=== PATIENT | female | born 1995 | race Hispanic/Latino ===

== ENCOUNTER 2024-04-27 02:53 | Inpatient (IN) | payer OTHER, SELFPAY ==
--- OUTSIDE RECORDS SUMMARY | 2024-04-27 02:55 | XMS REPORT | Continuity of Care Document ---
Author Name Unknown Address [address] [facility] [address] [place], [place] [id number] [place] [address] thconnect Address [address] [facility] 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 Role MANFRED Menjivar Attending Clinician Unavailable Payers Payer Name Policy Type Policy Number Effective Date Expirati on Date Source [facility] [id number] 00:00:00 Allergies, Adverse Reactions, Alerts Allergy Name Allergy Type Status Severity Reaction(s) Onset Date Inactive Date Treating Clinician Comments Source NO KNOWN ALLERGIE S Drug Class Active [facility] Encounters Start Date/Time End Date/Time Encounter Type Admission Type Attending Clinicians Care Facility Care Department Encounter ID Source 2020-01-23 15:20:00 2020-01-23 15:20:00 Outpatient MANFRED GUNDERSON [facility] [id number] [facility]
[2024-04-27] MEDS ORDERED: ONDANSETRON 4 MG/2 ML VIAL ONE (03:35)
[2024-04-27] MEDS ORDERED: MORPHINE 4 MG/ML SYR ONE (03:36)
[2024-04-27] MEDS ORDERED: NA CHLORIDE 0.9% 1,000 ML ONE (03:36)
[2024-04-27 03:52] LABS: Absolute Basophils 0.1 K/uL (0-0.5); Absolute Lymphocytes (CBC) 2.7 K/uL (0.7-4.9); Absolute Monocytes 0.7 K/uL (0.1-1.3); Basophils % 0.4 % (0-1.3); Eosinophils % 0.2 % (0-4.4); Hematocrit 42.3 % (36.0-45.0); Hemoglobin 14.2 g/dL (12.0-15.0); Lymphocytes % 15.3 % (15.3-44.8); MCHC 33.5 g/dL (32.0-36.0); MCV 86.5 fL (80-100); MPV 8.8 fL (7.6-11.3); Monocytes % 4.3 % (3.3-12.3); Neutrophils % 79.8 % (41.7-73.7); Nucleated Red Blood Cells % 0.1 % (0-0); Platelets 380 thou/uL (152-406); RBC Red Blood Cell Count 4.89 M/uL (3.86-4.86); Red Cell Distribution Width 15.3 % (12.1-15.2)
[2024-04-27 04:06] LABS: ALT/SGPT 98 U/L (13-56); AST/SGOT 158 U/L (15-37); Albumin 3.7 g/dL (3.4-5.0); Alkaline Phosphatase 96 U/L (45-117); Anion Gap 10.5 mEq/L (5.0-15.0); BUN Blood Urea Nitrogen 7 mg/dL (7-18); Bicarbonate 27 mEq/L (21-32); Bilirubin Total 0.7 mg/dL (0.2-1.0); Globulin 3.6 g/dL (2.3-3.5); Glomerular Filtration Rate 115 ml/min (=/>90); Glucose Level 117 mg/dL (74-106); Potassium 3.5 mEq/L (3.5-5.1); Protein, Total 7.3 g/dL (6.4-8.2); Sodium Level 139 mEq/L (136-145)
[2024-04-27 04:07] LABS: Lipase > 5000 U/L (13-75)
[2024-04-27 04:55] LABS: Specific Gravity > 1.030 (1.005-1.030); Urine Bilirubin NEGATIVE (Negative); Urine Blood Negative (Negative); Urine Clarity Clear (Clear); Urine Color Light-Yellow (Yellow); Urine Glucose NEGATIVE (Negative); Urine Ketones NEGATIVE (Negative); Urine Microscopic Reflex YN NO UMIC; Urine Nitrite NEGATIVE (Negative); Urine Protein NEGATIVE (Negative); Urine Urobilinogen Normal (Normal)
[2024-04-27] MEDS ORDERED: HYDROMORPHONE HCL 1 MG/ML INJ ONE ×2 (05:09→06:10)
--- NOTE | 2024-04-27 06:01 | RAD REPORT ---
EXAM DESCRIPTION: Abdomen Pelvis W Contrast RadLex: CT ABDOMEN PELVIS WITH IV CONTRAST CLINICAL HISTORY: 29 years Female; ABD PAIN; IV ONLY Bed Name: 2 TECHNIQUE: CT of the abdomen and pelvis [with] intravenous contrast. All CT scans at this facility use dose modulation, iterative reconstruction, and/or weight based dosi ng when appropriate to reduce radiation dose to as low as reasonably achievable. COMPARISON: None. FINDINGS: Lower thorax: Lung bases are clear Abdomen: Stomach: Within normal limits Liver: No focal lesions. No intrahepatic ductal distention. Gallbladder: Distended with wall thickening. Pancreas: Mild stranding and edema surrounding the pancreas Spleen: Within normal limits Right kidney: No hydronephrosis. No focal lesion. Left kidney: No hydronephrosis. No focal lesion. Adrenal glands: Within normal limits Vascular structures: Within normal limits Nodes: No lymphadenopathy by size criteria Pelvis: Small bowel: No significant distention. Appendix: Not visualized. Colon: No distention or acute pericolonic edema. Peritoneum: No free intraperitoneal fluid or air. Bones: No acute bone findings. Bladder: Unremarkable. Reproductive organs: No acute findings. IMPRESSION: 1. Mild stranding and edema surrounding the pancreas, can be seen in setting of acute pancreatitis. Correlate with amylase/lipase levels. 2. Distended gallbladder with wall thickening, can be seen in setting of acute cholecystitis. Recom mend dedicated ultrasound for further evaluation. Electronically signed by: Diane Steve MD 04/27/2024 05:12 AM [facility] Z Due to temporary technical issues with the PACS/Second Funnel reporting system, reports are being ashlee d by the in-house radiologist without review as a courtesy to ensure prompt reporting the interpreting radiologist is fully responsible for the content of the report. Transcribed Date/Time: 04/27/2024 6:01 AM
[2024-04-27] MEDS ORDERED: PROMETHAZINE INJ 25 MG/ML AMP ONE (06:10)
[2024-04-27] MEDS ORDERED: NA CHLORIDE 0.9% 100 ML ONE (06:11)
[2024-04-27] MEDS ORDERED: PIPERACIL/TAZO 3.375 GM VIAL IV ONE (06:11)
--- NOTE | 2024-04-27 06:33 | EDPHYS ---
Physician Documentation [facility] Name: Maya Arriaza Age: 29 yrs Sex: Female : 1995 Arrival Date: 04/27/2024 Time: 02:53 Bed 2 Private MD: ED Physician Rosario Jackson HPI: 04/27 03:30 This 29 yrs old Female presents to ER via Wheelchair with complaints of sp3 Nausea/Vomiting, Back Pain, Confused, Dizziness. 03:30 29-year-old female with no past medical history, obesity now presents to the ED with sp3 chief complaint left-sided abdominal pain and emesis. She is currently on a GLP-1 but cannot remember the exact name. She denies any headache, fever, neck pain, chest pain, shortness of breath, back or flank pain, lower abdominal pain, dysuria, urinary frequency, gross visualized hematuria, COIL CUTTER symptoms, or any other signs or symptoms on ROS at this time.. 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 - Infectious Disease History:: Denies. - Social history:: Smoking status: Patient reports the use of cigarette tobacco products, denies chronic smoking, but will smoke occasionally. ROS: 03:30 Constitutional: Negative for fever, chills, and weight loss, Eyes: Negative for injury, sp3 pain, redness, and discharge, ENT: Negative for injury, pain, and discharge, Neck: Negative for injury, pain, and swelling, Cardiovascular: Negative for chest pain, palpitations, and edema, Respiratory: Negative for shortness of breath, cough, wheezing, and pleuritic chest pain, Back: Negative for injury and pain, : Negative for injury, bleeding, discharge, and swelling, MS/Extremity: Negative for injury and deformity, Skin: Negative for injury, rash, and discoloration, Neuro: Negative for headache, weakness, numbness, tingling, and seizure, Psych: Negative for depression, anxiety, suicide ideation, homicidal ideation, and hallucinations, Allergy/Immunology: Negative for hives, rash, and allergies, Endocrine: Negative for neck swelling, polydipsia, polyuria, polyphagia, and marked weight changes, Hematologic/Lymphatic: Negative for swollen nodes, abnormal bleeding, and unusual bruising, 03:30 All other systems are negative, Exam: 03:30 Constitutional: This is a well developed, well nourished patient who is awake, alert, sp3 and in no acute distress. Head/Face: Normocephalic, atraumatic. Eyes: Pupils equal round and reactive to light, extra-ocular motions intact. Lids and lashes normal. Conjunctiva and sclera are non-icteric and not injected. Cornea within normal limits. Periorbital areas with no swelling, redness, or edema. Neck: Trachea midline, no thyromegaly or masses palpated, and no cervical lymphadenopathy. Supple, full range of motion without nuchal rigidity, or vertebral point tenderness. No Meningismus. Chest/axilla: Normal chest wall appearance and motion. Nontender with no deformity. No lesions are appreciated. Cardiovascular: Regular rate and rhythm with a normal S1 and S2. No gallops, murmurs, or rubs. Normal PMI, no JVD. No pulse deficits. Respiratory: Lungs have equal breath sounds bilaterally, clear to auscultation and percussion. No rales, rhonchi or wheezes noted. No increased work of breathing, no retractions or nasal flaring. Back: No spinal tenderness. No costovertebral tenderness. Full range of motion. Skin: Warm, dry with normal turgor. Normal color with no rashes, no lesions, and no evidence of cellulitis. MS/ Extremity: Pulses equal, no cyanosis. Neurovascular intact. Full, normal range of motion. Neuro: Awake and alert, GCS 15, oriented to person, place, time, and situation. Cranial nerves II-XII grossly intact. Motor strength 5/5 in all extremities. Sensory grossly intact. Cerebellar exam normal. Normal gait. Psych: Awake, alert, with orientation to person, place and time. Behavior, mood, and affect are within normal limits. 03:30 Abdomen/GI: Pain to the left upper quadrant and epigastric area without peritoneal signs, rebound or guarding., Vital Signs: 03:12 BP 163 / 81; Pulse 70; Resp 19 S; Temp 97.6(T); Pulse Ox 100% on R/A; Weight 86.18 kg; ha1 Height 5 ft. 3 in. ; 04:00 BP 158 / 99; Pulse 76; Resp 18 S; Pulse Ox 100% on R/A; ha1 05:00 BP 120 / 102; Pulse 62; Resp 17 S; Pulse Ox 100% on R/A; ha1 06:00 BP 107 / 50; Pulse 85; Resp 17 S; Pulse Ox 99% on R/A; ha1 07:01 BP 134 / 96; Pulse 63; Resp 17; Temp 97.6; Pulse Ox 100% ; Pain 2/10; bm8 08:51 BP 117 / 85; Pulse 61; Resp 14; Pulse Ox 100% on R/A; Pain 3/10; ss 03:12 Body Mass Index 33.66 (86.18 kg, 160.02 cm) ha1 07:01 Pain Scale: Adult bm8 08:51 Pain Scale: Adult ss Dipesh Coma Score: 07:01 Eye Response: spontaneous(4). Motor Response: obeys commands(6). Verbal Response: bm8 oriented(5). Total: 15. MDM: 03:13 Medical Screening Exam initiated sp3 03:31 Data reviewed: vital signs, nurses notes, lab test result(s), radiologic studies. ED sp3 course: 29-year-old female with left upper quadrant abdominal pain on a GLP-1. Differential diagnosis includes medication side effect, gastritis, peptic ulcer disease, diverticulitis, biliary pathology, functional abdominal pain, UTI/pyelonephritis spectrum, kidney stone spectrum, among others. I am not highly suspicious of aortic pathology, COIL CUTTER pathology or any other critical process at this time including sepsis and shock will obtain general labs, UA, hCG, CT abdomen pelvis with IV contrast and treat with normal saline, morphine IV, Zofran IV. Disposition pending workup and patient course.. 06:09 ED course: Patient has acute cholecystitis as well with common bile duct 5 mm and AST sp3 ALT is slightly elevated with normal alk phos and T. bili. I spoke to Dr. Felipe regarding all of this in addition to the lipase being greater than 5000. He states he is okay keeping her here for intervention. Patient will be admitted to medicine and pain and nausea control will continue along with antibiotics. Patient is NPO.. 04/27 03:29 Order name: CBC with Diff; Complete Time: 05:01 sp3 04/27 03:29 Order name: CMP; Complete Time: 05:01 sp3 03 03:29 Order name: Lipase; Complete Time: 05:01 sp3 03/03 03:29 Order name: Urinalysis w/ reflexes; Complete Time: 05:01 sp3 04/27 03:33 Order name: Test, Serum; Complete Time: 05:01 ha1 03/03 07:23 Order name: Lipid Profile EDMS 03/03 07:23 Order name: CBC with Automated Diff EDMS 03/03 07:23 Order name: CBC with Automated Diff EDMS 03/03 07:23 Order name: CBC with Automated Diff EDMS 03/03 07:23 Order name: CBC with Automated Diff EDMS 03/03 07:23 Order name: CBC with Automated Diff EDMS 03/03 07:23 Order name: CBC with Automated Diff EDMS 03/03 07:23 Order name: CBC with Automated Diff EDMS 03/03 07:23 Order name: CBC with Automated Diff EDMS 03/03 07:23 Order name: Comprehensive Metabolic Panel EDMS 03/03 07:23 Order name: Comprehensive Metabolic Panel EDMS 03/03 07:23 Order name: Comprehensive Metabolic Panel EDMS 03/03 07:23 Order name: Comprehensive Metabolic Panel EDMS 03/03 07:23 Order name: Comprehensive Metabolic Panel EDMS 03/03 07:23 Order name: Comprehensive Metabolic Panel EDMS 03/03 07:23 Order name: Comprehensive Metabolic Panel EDMS 03/03 07:23 Order name: Comprehensive Metabolic Panel EDMS 03/03 07:23 Order name: Magnesium EDMS 03/03 07:23 Order name: Magnesium EDMS 03/03 07:23 Order name: Magnesium EDMS 03/03 07:23 Order name: Magnesium EDMS 03/03 07:23 Order name: Magnesium EDMS 03/03 07:23 Order name: Magnesium EDMS 03/03 07:23 Order name: Magnesium EDMS 03/03 07:23 Order name: Magnesium EDMS 03/03 07:23 Order name: Phosphorus EDMS 03/03 07:23 Order name: Phosphorus EDMS 03/03 07:23 Order name: Phosphorus EDMS 03/03 07:23 Order name: Phosphorus EDMS 03/03 07:23 Order name: Phosphorus EDMS 03/03 07:23 Order name: Phosphorus EDMS 03/ 07:23 Order name: Phosphorus EDMS 03/03 07:23 Order name: Phosphorus EDMS 04/27 07:32 Order name: Lipase EDMS 04/27 07:32 Order name: Lipase EDMS 04/27 07:32 Order name: Lipase EDMS 04/27 07:32 Order name: Lipase EDMS 04/27 07:32 Order name: Lipase EDMS 04/27 07:32 Order name: Lipase EDMS 04/27 07:32 Order name: Lipase EDMS 04/27 07:32 Order name: Lipase EDMS 04/27 03:29 Order name: CT Abd/Pelvis - IV Contrast Only sp3 04/27 05:47 Order name: US Abdomen Limited sp3 04/27 07:23 Order name: CONS Physician Consult EDMS 04/27 03:29 Order name: IV Saline Lock; Complete Time: 03:31 sp3 04/27 03:29 Order name: Labs collected and sent; Complete Time: 03:31 sp3 Administered Medications: 03:40 Drug: Ondansetron IVP 4 mg IVP once; over 2 minutes Route: IVP; Site: right antecubital;ha1 04:00 Follow up: Response: No adverse reaction; Marked relief of symptoms; Vomiting decreased ha1 03:40 Drug: NS 0.9% IV 1000 ml IV at 1 bolus Per protocol; to be given as a bolus over 60 ha1 minutes Route: IV; Rate: 1 bolus; Site: right antecubital; 07:04 Follow up: Response: No adverse reaction; IV Status: Completed infusion bm8 03:44 Drug: morphine IVP or IV 4 mg IVP once over 4 mins Route: IVP; Infused Over: 4 mins; ha1 Site: right antecubital; 04:00 Follow up: Response: No adverse reaction; Pain is decreased; RASS: Alert and Calm (0) ha1 05:12 Drug: HYDROmorphone IVP 1 mg IVP once Route: IVP; Site: right antecubital; ha1 05:45 Follow up: Response: No adverse reaction; Pain is unchanged, physician notified; RASS: ha1 Alert and Calm (0) 06:24 Drug: Piperacillin-Tazobactam IVPB 3.375 grams IVPB once over 60 mins; (mix in NS 100 bm8 mL) Route: IVPB; Infused Over: 60 mins; Site: right antecubital; 07:04 Follow up: Response: No adverse reaction; IV Status: Completed infusion; IV Intake: bm8 100ml 06:24 Drug: HYDROmorphone IVP 1 mg IVP once Route: IVP; Site: right antecubital; bm8 07:04 Follow up: Response: No adverse reaction bm8 06:24 Drug: Promethazine IVP 12.5 mg IVP once Route: IVP; Site: right antecubital; bm8 07:04 Follow up: Response: No adverse reaction bm8 Disposition Summary: 04/27/24 06:32 Hospitalization Ordered Notes: Hospitalization Status: Inpatient Admission sp3 Provider: Herbert Cedeno sp3 Condition: Stable sp3 Problem: an acute exacerbation sp3 Symptoms: have worsened sp3 Bed/Room Type: Standard sp3 Location: Telemetry/MedSurg (Inpatient)(04/27/24 07:09) ha1 Room Assignment: [facility](04/27/24 08:14) ja1 Diagnosis - Gallstone pancreatitis, leukocytosis, abdominal pain sp3 Forms: - Medication Reconciliation Form sp3 - SBAR form sp3 - Leadership Thank You Letter sp3 Signatures: Dispatcher [employer] EDMS Nicko Krishnan RN RN ja1 Rosario Jackson MD MD sp3 Jacki Potts RN RN vc1 Katheryn Roberts, RUBEN RN ha1 El Durán, RN RN bm8 Corrections: (The following items were deleted from the chart) 03:30 03:30 CBC+H.LAB.BRZ ordered. EDMS EDMS 03:30 03:30 COMPREHENSIVE METABOLIC PANEL+C.LAB.BRZ ordered. EDMS EDMS 03:30 03:30 LIPASE+C.LAB.BRZ ordered. EDMS EDMS 03:30 03:30 Urinalysis+U.LAB.BRZ ordered. EDMS EDMS 03:30 03:30 Abdomen Pelvis W Con+CT.RAD.BRZ ordered. EDMS EDMS 03:42 03:30 Test, Urine+UC.LAB.BRZ ordered. EDMS EDMS 06:43 06:32 Telemetry/MedSurg (Inpatient) sp3 vc1 06:43 06:32 sp3 vc1 07:09 06:43 BR ER HOLD vc1 ha1 07:09 06:43 ERHOLD- vc1 ha1 08:14 07:09 ha1 ja1
--- NOTE | 2024-04-27 06:33 | ER ---
Nurse's Notes [facility] Name: Maya Arriaza Age: 29 yrs Sex: Female : 1995 Arrival Date: 04/27/2024 Time: 02:53 Bed 2 Private MD: Diagnosis: Gallstone pancreatitis, leukocytosis, abdominal pain Presentation: 04/27 03:12 Chief complaint: Patient states: LEFT UPPER QUADRANT PAIN, RADIATES TO LEFT SHOULDER, ha1 NAUSEA, VOMITING, AND DIZZINESS WHEN VOMITING. 03:12 Coronavirus screen: Client denies travel out of the [place] in the last 14 days. Ebola ha1 Screen: No symptoms or risks identified at this time. Initial Sepsis Screen: Does the patient meet any 2 criteria? No. Patient's initial sepsis screen is negative. Does the patient have a suspected source of infection? No. Patient's initial sepsis screen is negative. Risk Assessment: Do you want to hurt yourself or someone else? Patient reports no desire to harm self or others. Onset of symptoms was April 27, 2024. 03:12 Method Of Arrival: Wheelchair ha1 03:12 Acuity: IVAN 3 ha1 Triage Assessment: 03:12 General: Appears uncomfortable, Behavior is cooperative. Pain: Complains of pain in ha1 left upper quadrant Pain currently is 9 out of 10 on a pain scale. Quality of pain is described as throbbing, Pain began 2 hours ago. Neuro: Level of Consciousness is awake, alert, obeys commands, Oriented to person, place, time, situation. Neuro: Reports dizziness. Cardiovascular: Capillary refill < 3 seconds Patient's skin is warm and dry. Respiratory: Airway is patent Respiratory effort is even, unlabored, Respiratory pattern is regular, symmetrical. GI: Abdomen is round non-distended, Bowel sounds present X 4 quads. Abd is soft and non tender X 4 quads. Reports upper abdominal pain, nausea, vomiting. : No signs and/or symptoms were reported regarding the genitourinary system. Derm: Skin is pink, warm \T\ dry. Musculoskeletal: Circulation, motion, and sensation intact. Range of motion: intact in all extremities. 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 - Infectious Disease History:: Denies. - Social history:: Smoking status: Patient reports the use of cigarette tobacco products, denies chronic smoking, but will smoke occasionally. Screenin:28 [facility] ED Fall Risk Assessment (Adult) History of falling in the last 3 months, ha1 including since admission No falls in past 3 months (0 pts) Confusion or Disorientation No (0 pts) Intoxicated or Sedated No (0 pts) Impaired Gait No (0 pts) Mobility Assist Device Used No (0 pt) Altered Elimination No (0 pt) Score/Fall Risk Level 0 - 2 = Low Risk Oriented to surroundings, Maintained a safe environment, Educated pt \T\ family on fall prevention, incl call for assistance when getting out of bed, Hourly rounding (assess needs \T\ fall precautionary measures) done. Abuse screen: Denies threats or abuse. Denies injuries from another. Nutritional screening: No deficits noted. Tuberculosis screening: No symptoms or risk factors identified. Assessment: 03:12 Reassessment: SEE TRIAGE ASSESSMENT . ha1 04:00 Reassessment: Patient and/or family updated on plan of care and expected duration. Pain ha1 level reassessed. Patient is alert, oriented x 3, equal unlabored respirations, skin warm/dry/pink. PAIN 6/10. 04:45 Reassessment: Patient and/or family updated on plan of care and expected duration. Pain ha1 level reassessed. Patient is alert, oriented x 3, equal unlabored respirations, skin warm/dry/pink. PAIN 10/10. REQUESTING PAIN MEDICATION. 07:01 Reassessment: Patient appears in no apparent distress at this time. Patient and/or bm8 family updated on plan of care and expected duration. Pain level reassessed. Patient is alert, oriented x 3, equal unlabored respirations, skin warm/dry/pink. Patient states feeling better. Patient states symptoms have improved. Neuro: No deficits noted. Level of Consciousness is awake, alert, obeys commands, Oriented to person, place, time, situation, Appropriate for age. GI: No signs and/or symptoms were reported involving the gastrointestinal system. Abdomen is flat, non-distended, Abdomen is tender to palpation in right upper quadrant and left upper quadrant Reports Pain is 2 out of 10 on a pain scale. 07:10 Reassessment: LANI Cameron at bedside assessing pt and discussing plan of care at this ha1 time. Report received from El Gomez RN. 07:45 Reassessment:. General: Appears in no apparent distress. comfortable, Behavior is calm, ss cooperative. Respiratory: Airway is patent Respiratory effort is even, unlabored, Respiratory pattern is regular, symmetrical. Derm: Skin is pink, warm \T\ dry. normal. 08:45 Reassessment: Patient appears in no apparent distress at this time. Patient and/or ss family updated on plan of care and expected duration. Pain level reassessed. Patient is alert, oriented x 3, equal unlabored respirations, skin warm/dry/pink. Pt reports pain has decreased to 3/10 Patient states feeling better. Patient states symptoms have improved. Vital Signs: 03:12 BP 163 / 81; Pulse 70; Resp 19 S; Temp 97.6(T); Pulse Ox 100% on R/A; Weight 86.18 kg; ha1 Height 5 ft. 3 in. ; 04:00 BP 158 / 99; Pulse 76; Resp 18 S; Pulse Ox 100% on R/A; ha1 05:00 BP 120 / 102; Pulse 62; Resp 17 S; Pulse Ox 100% on R/A; ha1 06:00 BP 107 / 50; Pulse 85; Resp 17 S; Pulse Ox 99% on R/A; ha1 07:01 BP 134 / 96; Pulse 63; Resp 17; Temp 97.6; Pulse Ox 100% ; Pain 2/10; bm8 08:51 BP 117 / 85; Pulse 61; Resp 14; Pulse Ox 100% on R/A; Pain 3/10; ss 03:12 Body Mass Index 33.66 (86.18 kg, 160.02 cm) ha1 07:01 Pain Scale: Adult bm8 08:51 Pain Scale: Adult ss Dipesh Coma Score: 07:01 Eye Response: spontaneous(4). Motor Response: obeys commands(6). Verbal Response: bm8 oriented(5). Total: 15. ED Course: 02:59 Patient arrived in ED. gm2 03:12 Rosario Jackson MD is Attending Physician. sp3 03:12 Patient has correct armband on for positive identification. Placed in gown. Bed in low ha1 position. Call light in reach. Side rails up X 1. Adult w/ patient. 03:20 Katheryn Roberts, RN is Primary Nurse. ha1 03:24 Triage completed. ha1 03:31 Inserted saline lock: 20 gauge in right antecubital area, using aseptic technique. af3 Blood collected. Flushed with 10 mL NS. 04:26 CT Abd/Pelvis - IV Contrast Only In Process Unspecified. EDMS 06:08 US Abdomen Limited In Process Unspecified. EDMS 06:28 Herbert Cedeno MD is Hospitalizing Provider. sp3 07:03 No provider procedures requiring assistance completed. Patient admitted, IV remains in bm8 place. 07:04 Provided Education on: NEED FOR ADMISSION. bm8 Administered Medications: 03:40 Drug: Ondansetron IVP 4 mg IVP once; over 2 minutes Route: IVP; Site: right antecubital;ha1 04:00 Follow up: Response: No adverse reaction; Marked relief of symptoms; Vomiting decreased ha1 03:40 Drug: NS 0.9% IV 1000 ml IV at 1 bolus Per protocol; to be given as a bolus over 60 ha1 minutes Route: IV; Rate: 1 bolus; Site: right antecubital; 07:04 Follow up: Response: No adverse reaction; IV Status: Completed infusion bm8 03:44 Drug: morphine IVP or IV 4 mg IVP once over 4 mins Route: IVP; Infused Over: 4 mins; ha1 Site: right antecubital; 04:00 Follow up: Response: No adverse reaction; Pain is decreased; RASS: Alert and Calm (0) ha1 05:12 Drug: HYDROmorphone IVP 1 mg IVP once Route: IVP; Site: right antecubital; ha1 05:45 Follow up: Response: No adverse reaction; Pain is unchanged, physician notified; RASS: ha1 Alert and Calm (0) 06:24 Drug: Piperacillin-Tazobactam IVPB 3.375 grams IVPB once over 60 mins; (mix in NS 100 bm8 mL) Route: IVPB; Infused Over: 60 mins; Site: right antecubital; 07:04 Follow up: Response: No adverse reaction; IV Status: Completed infusion; IV Intake: bm8 100ml 06:24 Drug: HYDROmorphone IVP 1 mg IVP once Route: IVP; Site: right antecubital; bm8 07:04 Follow up: Response: No adverse reaction bm8 06:24 Drug: Promethazine IVP 12.5 mg IVP once Route: IVP; Site: right antecubital; bm8 07:04 Follow up: Response: No adverse reaction bm8 Medication: 03:29 VIS not applicable for this client. ha1 Intake: 07:04 IV: 100ml; Total: 100ml. bm8 Outcome: 06:32 Decision to Hospitalize by Provider. sp3 07:03 Condition: stable bm8 07:03 Instructed on follow up and referral plans. the need for admit, Demonstrated understanding of follow-up care, medications, 09:22 Patient left the ED. ss Signatures: Dispatcher [employer] EDBettye Blue RN RN ss Rosario Jackson MD MD sp3 Katheryn Roberts RN RN ha1 Shawanda Elliott gm2 El Durán RN RN bm8 Heather Albarran af3 Corrections: (The following items were deleted from the chart) 08:53 07:03 Admitted to ER Hold. Please see [facility] for further documentation. bm8 ss
[2024-04-27] MEDS ORDERED: HYDRALAZINE HCL 20 MG/ML VIAL IV PRN (07:15)
[2024-04-27] MEDS ORDERED: HYDROMORPHONE HCL 1 MG/ML INJ IV PRN (07:15)
--- NOTE | 2024-04-27 07:29 | P.HP ---
Certification for Inpatient Patient admitted to: Inpatient With expected LOS: >2 Midnights Practitioner: I am a practitioner with admitting privileges, knowledge of patient current condition, hospital course, and medical plan of care. Services: Services provided to patient in accordance with Admission requirements found in Title 42 Section 412.3 of the Code of Federal Regulations Patient History Date of Service: 04/27/24 Reason for admission: Acute gallstone pancreatitis History of Present Illness: Maya Arriaza is a 29 year old female with no significant PMhx who presents to the ED with right shoulder pain, upper abdominal pain, and nause/vomiting since 10:30 PM last night. She reports she has not had anything to eat of drink since last night at 6:30 pm. She denies having these symptoms in the past. Laboratory evaluation significant for WBC 17, Lipase >5000, AST 158, ALT 98. She reports using marijuana and tobacco. CT abd/pelvis reports "1. Mild stranding and edema surrounding the pancreas, can be seen in setting of acute pancreatitis. Correlate with amylase/lipase levels. 2. Distended gallbladder with wall thickening, can be seen in setting of acute cholecystitis. Recommend dedicated ultrasound for further evaluation." Maya will be admitted to hospitalist service for further evaluation and treatment, Dr. Felipe consulted. Allergies No Known Allergies Allergy (Unverified 04/27/24 08:16) Home Medications: Phentermine HCl 1 tab PO DAILY 04/27/24 - Past Medical/Surgical History Past Medical History: Patient denies medical history Past Surgical History: Patient denies surgical history - Social History Smoking Status: Current some day smoker (tobacco and marijuana) Alcohol use: Yes CD- Drugs: Yes Review of Systems Other: Per HPI Physical Examination - Physical Exam General: Alert, In no apparent distress, Oriented x3 HEENT: Atraumatic, Normocephalic, PERRLA Neck: Supple, 2+ carotid pulse no bruit Respiratory: Clear to auscultation bilaterally, Normal air movement Cardiovascular: Normal pulses, Regular rate/rhythm, Normal S1 S2 Capillary refill: <2 Seconds Gastrointestinal: Soft and benign, Tenderness Musculoskeletal: No clubbing Integumentary: No rashes Neurological: Normal speech, Normal tone - Studies Laboratory Data (last 24 hrs) 04/27/24 04/27/24 03:33 03:33 WBC 17.50 H Hgb 14.2 Hct 42.3 Plt Count 380 Sodium 139 Potassium 3.5 BUN 7 Creatinine 0.72 Glucose 117 H Total Bilirubin 0.7 AST 158 H ALT 98 H Alkaline Phosphatase 96 Lipase > 5000 H Assessment and Plan - Plan Assessment and Plan Acute gallstone pancreatitis -Ultrasound abdomen pending -Lipase > 5000, trend daily -AST 158, ALT 98, trend daily -Pain control -Zosyn IV -N.p.o. -Dr. Felipe consulted -Aggressive IV fluids Tobacco and marijuana abuse -cessation education provided DVT ppx lovenox Full code LOS 2-3 days - Advance Directives Does patient have a Living Will: No Does patient have a Durable POA for Healthcare: No
--- NOTE | 2024-04-27 08:11 | RAD REPORT ---
PROCEDURE: US ABDOMEN LIMITED INDICATION: Abdominal pain. Concern for cholecystitis.. COMPARISON: CT abdomen and pelvis 04/27/2024 TECHNIQUE: Grayscale, color and spectral Doppler ultrasound of the gallbladder was performed. FINDINGS: Small amount of layering gallstones are seen in gallbladder. Gallbladder wall is edematous, measuring up to 4 mm in thickness. Trace pericholecystic fluid is present. Positive sonographic Hartmann's sign. The common duct measures 4.9 mm, within normal range. There is no evidence of choledocholithiasis. No ascites. IMPRESSION: Cholelithiasis with concern for acute cholecystitis. Electronically signed by: Lula Styles MD 04/27/2024 06:[address] [facility] Due to temporary technical issues with the PACS/CRAVE reporting system, reports are being ashlee d by the in-house radiologist without review as a courtesy to ensure prompt reporting the interpreting radiologist is fully responsible for the content of the report. Transcribed Date/Time: 04/27/2024 8:10 AM
[2024-04-27] MEDS: ENOXAPARIN 40 MG/0.4 ML SQ SCH (09:00)
[2024-04-27] MEDS: PROMETHAZINE INJ 25 MG/ML AMP IV PRN (09:47)
[2024-04-27] MEDS: HYDROMORPHONE HCL 2 MG/ML inj IV PRN (09:54)
[2024-04-27 10:20] VITALS: BMI 33.6
[2024-04-27] MEDS: NA CHLORIDE 0.9% 1,000 ML IV SCH (12:07)
[2024-04-27] MEDS: PIPER TAZO 3.375 GM in NA CHLORIDE 0.9% 100 ML IV SCH (14:28)
[2024-04-28 06:14] LABS: Absolute Eosinophils 0.1 K/uL (0-0.5); Absolute Monocytes 0.8 K/uL (0.1-1.3); Basophils % 0.4 % (0-1.3); Eosinophils % 0.5 % (0-4.4); Hematocrit 37.9 % (36.0-45.0); Hemoglobin 12.4 g/dL (12.0-15.0); Lymphocytes % 23.5 % (15.3-44.8); MCH 28.8 pg (27.0-35.0); MCHC 32.7 g/dL (32.0-36.0); MPV 8.2 fL (7.6-11.3); Monocytes % 6.1 % (3.3-12.3); Neutrophils % 69.5 % (41.7-73.7); Nucleated Red Blood Cells % 0.1 % (0-0); Platelets 303 thou/uL (152-406); Red Cell Distribution Width 15.3 % (12.1-15.2)
[2024-04-28 06:31] LABS: Albumin 2.7 g/dL (3.4-5.0); Albumin/Globulin Ratio 0.8 (1.1-1.8); Anion Gap 9.4 mEq/L (5.0-15.0); Bilirubin Total 0.7 mg/dL (0.2-1.0); Globulin 3.5 g/dL (2.3-3.5); Phosphorus 2.7 mg/dL (2.5-4.9); Protein, Total 6.2 g/dL (6.4-8.2)
[2024-04-28 06:36] LABS: Magnesium 2.1 mg/dL (1.6-2.4); Potassium 3.4 mEq/L (3.5-5.1)
--- NOTE | 2024-04-28 17:30 | P.PN ---
Date of Service: 04/28/24 Subjective Awake, continues with RUQ pain Able to ambulate Will attempt CLD ROS 10 point ROS as noted above, otherwise negative Physical Exam General: Alert and Oriented x3, afebrile Neck: Supple, 2+ carotid pulse no bruit Respiratory: Clear to auscultation bilaterally, Normal air movement, on RA Cardiovascular: Normal pulses, RRR, Normal S1 S2 Capillary refill: <2 Seconds Gastrointestinal: Soft and Tender on palpation Musculoskeletal: No clubbing Integumentary: No rashes Neurological: Normal speech, Normal tone Vitals Reviewed Problem list Acute gallstone pancreatitis Tobacco and marijuana abuse Assessment and Plan Acute gallstone pancreatitis Leukocytosis likely 2/2 inflammation -Ultrasound abdomen reports "Cholelithiasis with concern for acute cholecystitis." -Lipase > 5000, trend daily -AST 158, ALT 98, trend daily -Pain control -Zosyn IV -Dr. Felipe consulted -Aggressive IV fluids Tobacco and marijuana abuse -cessation education provided Plan -LFT, lipase, and WBC improved -abdominal pain continues -CLD started -Continue to monitor recovery DVT ppx lovenox Full code LOS 2-3 days
[2024-04-29 05:14] LABS: Absolute Lymphocytes (CBC) 1.9 K/uL (0.7-4.9); Absolute Monocytes 0.7 K/uL (0.1-1.3); Absolute Neutrophil 8.4 K/uL (1.8-8.0); Basophils % 0.3 % (0-1.3); Eosinophils % 0.2 % (0-4.4); Hematocrit 39.2 % (36.0-45.0); MCH 28.9 pg (27.0-35.0); MCV 87.4 fL (80-100); MPV 8.7 fL (7.6-11.3); Neutrophils % 76.5 % (41.7-73.7); Platelets 305 thou/uL (152-406); RBC Red Blood Cell Count 4.49 M/uL (3.86-4.86); Red Cell Distribution Width 15.5 % (12.1-15.2)
[2024-04-29 05:33] LABS: ALT/SGPT 92 U/L (13-56); AST/SGOT 92 U/L (15-37); Albumin 2.8 g/dL (3.4-5.0); Albumin/Globulin Ratio 0.8 (1.1-1.8); Alkaline Phosphatase 143 U/L (45-117); Anion Gap 8.3 mEq/L (5.0-15.0); Bicarbonate 23 mEq/L (21-32); Bilirubin Total 2.8 mg/dL (0.2-1.0); Globulin 3.7 g/dL (2.3-3.5); Glomerular Filtration Rate 127 ml/min (=/>90); Glucose Level 93 mg/dL (74-106); Lipase 182 U/L (13-75); Phosphorus 2.1 mg/dL (2.5-4.9); Potassium 3.3 mEq/L (3.5-5.1); Protein, Total 6.5 g/dL (6.4-8.2); Sodium Level 136 mEq/L (136-145)
[2024-04-29 05:39] LABS: BUN Blood Urea Nitrogen < 3 mg/dL (7-18)
[2024-04-29] MEDS: POTASSIUM CL SA 10 MEQ TAB PO ONE (12:15)
--- NOTE | 2024-04-29 14:00 | CON ---
Date of Consultation: 04/29/2024 Brief Hpi: The patient is a 29-year-old female with no significant past medical history who presente d to the hospital with right shoulder, abdominal pain, particularly around the epigastric region, ass ociated with nausea, vomiting since yesterday. She denies any sick contacts. No recent travel. No new food exposures. She has not had these symptom before in the past to her recollection. The pain is fairly constant at this point boring through in the middle of her abdomen. Past Medical History: Negative. Past Surgical History: C-sections. Allergies: NO KNOWN DRUG ALLERGIES. Home Medications: Include phentermine and GLP-1 inhibitor. Social History: She smokes marijuana recreationally. She drinks alcohol. She denies any other recr eational drug use or tobacco usage. Review of Systems: 10 point review of systems other than HPI denies. Physical Examination: At the time of my examination: General: She is awake, alert, oriented. Psychiatric: Appropriate, conversive. HEENT: Normocephalic. Sclerae anicteric. Mucous membranes are moist. Oropharynx clear. Neck: Supple. No JVD. Chest: Normal expansion and excursion. Cardiovascular: Regular rate and rhythm. Pulmonary: Clear to auscultation bilaterally. Abdomen: Soft with positive epigastric tenderness to palpation. No rebound. No guarding. No focal peritonitis. Extremities: No clubbing, cyanosis, edema. Skin: Warm and dry. Laboratory Exam: White blood count 17.5, hemoglobin is 14.2, hematocrit of 42.3, platelet count is 3 80, neutrophils 79%. Her sodium 139, potassium 3.5, chloride 105, carbon dioxide is 27, BUN 7, creat inine 0.72, glucose is 117. Total bilirubin 0.7, AST 158, ALT 98, alkaline phosphatase 96. Lipase i s greater than 5000. Urine test is negative. She had imaging performed, which included an ultrasound of the abdomen and pelvis, officially read as mild stranding and edema surrounding the pa ncreas, can be seen in the setting of acute pancreatitis, correlate with amylase, lipase levels, dist ended gallbladder with wall thickening, can be seen with acute cholecystitis. She additionally had a CT of the abdomen and pelvis. The CT was officially read as cholelithiasis with concern for acute c holecystitis on the ultrasound. Small layering gallstones seen in the gallbladder. Gallbladder wall is edematous measuring at 4 mm in thickness. Trace pericholecystic fluid is present. Common bile d uct measures 4.9, within normal range. No evidence of choledocholithiasis. No ascites. Assessment And Plan: This is a 29-year-old female who comes in with evidence of pancreatitis of unce rtain etiology, possibly biliary in origin. However, the patient does have a history of alcohol usag e as well as GLP-1 usage recently. 1. IV fluid hydration. 2. Antibiotic coverage. 3. Serial abdominal exams. 4. Continue to work up the etiology of her pancreatitis. If it is determined that biliary is the jhonatan gin, I have discussed the risks, benefits, alternatives of laparoscopic possible open cholecystectomy including but not limited to bleeding, infection, damage to surrounding tissue, need for further ope rative procedure, injury to bile ducts, intestines, other unforeseen complications in the perioperati ve period including blood clots, heart attack, strokes, other unforeseen complication in the perioper ative period, possible need for significant reconstructive surgery and other unforeseen complications related to anesthesia. The patient displayed understanding of above stated plan and agreed to proce ed as indicated. Thank you for this interesting consult. KOMAL/DAY Voice ID: [id number] Report ID: [id number]
--- NOTE | 2024-04-29 16:09 | RAD REPORT ---
EXAMINATION: MR CHOLANGIOGRAM CLINICAL INDICATION: Female, 29 years old. Biliruben elevation TECHNIQUE: Multiplanar, multisequence MR imaging of the abdomen without intravenous contrast, and wit h specific attention to the biliary system. Unless otherwise specified, incidental findings do not require dedicated imaging follow-up. 3D MIP reconstruction performed. COMPARISON: Ultrasound and CT 04/27/2024 FINDINGS: GALLBLADDER: Gallbladder wall thickening with layering stones. BILE DUCTS: No biliary ductal dilatation. Negative for choledocholithiasis. LIVER: No focal mass. Mild prominence of the intrahepatic common bile ducts but no evidence of ductal irregularity. PANCREAS: Normal signal. No mass, ductal dilation, or rocco-pancreatic fluid. LYMPH NODES: No lymphadenopathy. ADDITIONAL FINDINGS: None. IMPRESSION: No extrahepatic biliary duct dilatation, stricture, or choledocholithiasis identified. Minimal intrahepatic biliary duct dilatation Nonspecific gallbladder wall thickening with cholelithiasis. This could reflect acute cholecystitis.
--- NOTE | 2024-04-29 17:43 | P.PN ---
Date of Service: 04/29/24 Subjective Tolerating CLD, advanced to FLD cholecystectomy tomorrow Continues with RUQ pain, overall pain has improved ROS 10 point ROS as noted above, otherwise negative Physical Exam General: AAO x3, afebrile Neck: Supple, 2+ carotid pulse no bruit Respiratory: Clear to auscultation bilaterally, Normal air movement, on RA Cardiovascular: Regular rate and rhythm, Normal S1 S2 Capillary refill: <2 Seconds Gastrointestinal: Soft, Tenderness Musculoskeletal: No clubbing Integumentary: No rashes Neurological: Normal speech, Normal tone Vitals Reviewed Problem list Acute gallstone pancreatitis Tobacco and marijuana abuse Assessment and Plan Acute gallstone pancreatitis Leukocytosis likely 2/2 inflammation -Ultrasound abdomen reports "Cholelithiasis with concern for acute cholecystitis." -Lipase > 5000, trend daily -AST 158, ALT 98, trend daily -Pain control -Zosyn IV -Dr. Felipe consulted -Aggressive IV fluids -MRCP showing mild prominence of intrahepatic common bile duct but no evidence of ductal irregularity. Tobacco and marijuana abuse -cessation education provided Interval hospital course 04/29/24 Plan -Bilirubin elevated -MRCP showing WNL -likely surgical intervention in the AM -Continue IV antibiotics DVT ppx lovenox Full code LOS 2-3 days
[2024-04-30 04:38] LABS: Absolute Eosinophils 0.1 K/uL (0-0.5); Absolute Lymphocytes (CBC) 2.1 K/uL (0.7-4.9); Absolute Monocytes 0.8 K/uL (0.1-1.3); Absolute Neutrophil 5.9 K/uL (1.8-8.0); Basophils % 0.5 % (0-1.3); Eosinophils % 0.8 % (0-4.4); Hematocrit 35.7 % (36.0-45.0); Hemoglobin 11.8 g/dL (12.0-15.0); Lymphocytes % 23.2 % (15.3-44.8); MCV 87.7 fL (80-100); MPV 8.3 fL (7.6-11.3); Monocytes % 8.8 % (3.3-12.3); Neutrophils % 66.7 % (41.7-73.7); Platelets 315 thou/uL (152-406); RBC Red Blood Cell Count 4.07 M/uL (3.86-4.86); Red Cell Distribution Width 15.3 % (12.1-15.2)
[2024-04-30 05:03] LABS: ALT/SGPT 104 U/L (13-56); AST/SGOT 83 U/L (15-37); Albumin 2.8 g/dL (3.4-5.0); Albumin/Globulin Ratio 0.8 (1.1-1.8); Alkaline Phosphatase 123 U/L (45-117); Anion Gap 9.1 mEq/L (5.0-15.0); Bicarbonate 22 mEq/L (21-32); Bilirubin Total 1.3 mg/dL (0.2-1.0); Globulin 3.5 g/dL (2.3-3.5); Glomerular Filtration Rate 127 ml/min (=/>90); Glucose Level 93 mg/dL (74-106); Lipase 148 U/L (13-75); Potassium 3.1 mEq/L (3.5-5.1); Protein, Total 6.3 g/dL (6.4-8.2); Sodium Level 138 mEq/L (136-145)
[2024-04-30 05:04] LABS: BUN Blood Urea Nitrogen < 3 mg/dL (7-18)
[2024-04-30] MEDS: KCL 20 MEQ/100 mL IVPB 20 MEQ/100 ML BAG IV SCH ×2 (07:21→21:41)
[2024-04-30] MEDS: NA CHLORIDE 0.9% 1,000 ML IV SCH (13:57)
--- NOTE | 2024-04-30 14:15 | P.PN ---
Date of Service: 04/30/24 Subjective Feeling well this morning ROS 10 point ROS as noted above, otherwise negative Physical Exam General: AAO x3, afebrile Neck: Supple, 2+ carotid pulse no bruit Respiratory: Clear BBS, Normal air movement, on RA Cardiovascular: RRR, Normal S1 S2, no edema Capillary refill: <2 Seconds Gastrointestinal: Soft, Tenderness, active bowel sounds Musculoskeletal: No clubbing Integumentary: No rashes Neurological: Normal speech, Normal tone Vitals Reviewed Problem list Acute gallstone pancreatitis Tobacco and marijuana abuse Assessment and Plan Acute gallstone pancreatitis Leukocytosis likely 2/2 inflammation -Ultrasound abdomen reports "Cholelithiasis with concern for acute cholecystitis." -Lipase > 5000, trend daily -LFT trend daily -Pain control -Zosyn IV -Dr. Felipe consulted -Aggressive IV fluids -MRCP showing mild prominence of intrahepatic common bile duct but no evidence of ductal irregularity. Tobacco and marijuana abuse -cessation education provided Interval hospital course 04/29/24 Plan -Bilirubin elevated -MRCP showing WNL -likely surgical intervention in the AM -Continue IV antibiotics 04/30/24 -Lipase trending down -Dr. Felipe plans for surgery in the AM -CLD then NPO at midnight -reduced IVF -Continue antibiotics DVT ppx lovenox Full code LOS 2-3 days
[2024-04-30] MEDS: POTASSIUM CL SA 10 MEQ TAB PO ONE (22:26)
[2024-05-01 05:18] LABS: Absolute Eosinophils 0.2 K/uL (0-0.5); Absolute Lymphocytes (CBC) 2.8 K/uL (0.7-4.9); Absolute Monocytes 0.9 K/uL (0.1-1.3); Absolute Neutrophil 6.9 K/uL (1.8-8.0); Basophils % 0.4 % (0-1.3); Eosinophils % 1.9 % (0-4.4); Hematocrit 34.1 % (36.0-45.0); Hemoglobin 11.7 g/dL (12.0-15.0); MCH 29.6 pg (27.0-35.0); MCHC 34.4 g/dL (32.0-36.0); MCV 86.2 fL (80-100); Monocytes % 8.4 % (3.3-12.3); Neutrophils % 63.3 % (41.7-73.7); Platelets 305 thou/uL (152-406); RBC Red Blood Cell Count 3.96 M/uL (3.86-4.86); Red Cell Distribution Width 15.5 % (12.1-15.2)
[2024-05-01 05:52] LABS: ALT/SGPT 93 U/L (13-56); AST/SGOT 41 U/L (15-37); Albumin 2.8 g/dL (3.4-5.0); Albumin/Globulin Ratio 0.8 (1.1-1.8); Alkaline Phosphatase 104 U/L (45-117); Anion Gap 8.6 mEq/L (5.0-15.0); Bicarbonate 24 mEq/L (21-32); Bilirubin Total 0.9 mg/dL (0.2-1.0); Globulin 3.3 g/dL (2.3-3.5); Glomerular Filtration Rate 135 ml/min (=/>90); Glucose Level 87 mg/dL (74-106); Lipase 111 U/L (13-75); Magnesium 1.9 mg/dL (1.6-2.4); Phosphorus 2.5 mg/dL (2.5-4.9); Potassium 3.6 mEq/L (3.5-5.1); Protein, Total 6.1 g/dL (6.4-8.2); Sodium Level 139 mEq/L (136-145)
[2024-05-01 05:58] LABS: BUN Blood Urea Nitrogen < 3 mg/dL (7-18)
[2024-05-01] MEDS: KCL 20 MEQ/100 mL IVPB 20 MEQ/100 ML BAG IV SCH (06:33)
[2024-05-01 11:07] LABS: Specific Gravity 1.023 (1.005-1.030)
[2024-05-01] MEDS: Ringers Lactate 1,000 ML IV ONE (13:33)
[2024-05-01] MEDS ORDERED: LIDOCAINE 2% MPF 5 ML VIAL ONE (14:22)
[2024-05-01] MEDS ORDERED: NEOSTIGMINE 1 MG/ML -10 ML VIAL ONE (14:22)
[2024-05-01] MEDS ORDERED: propofoL 200 MG/20 ML VIAL IV ONE (14:22)
[2024-05-01] MEDS ORDERED: ONDANSETRON 4 MG/2 ML VIAL ONE (14:22)
[2024-05-01] MEDS ORDERED: GLYCOPYRROLATE 0.2 MG/ML SYR ONE (14:22)
[2024-05-01] MEDS ORDERED: FENTANYL CITR 100 MCG/2 ML ONE (14:23)
[2024-05-01] MEDS ORDERED: MIDAZOLAM HCL 2 MG/2 ML INJ ONE (14:23)
[2024-05-01] MEDS ORDERED: ROCURONIUM 50 MG/5 ML VIAL IV ONE (14:23)
[2024-05-01] MEDS ORDERED: dexAMETHasone 4 MG/ML VIAL ONE (15:17)
[2024-05-01] MEDS: LIDOCAINE HCL/EPINEPHRINE 20 ML MDV ONE (15:23)
[2024-05-01] MEDS ORDERED: KETOROLAC 30 MG/ML INJ ONE (15:46)
--- NOTE | 2024-05-01 15:52 | P.OP ---
Preoperative diagnosis: Gallstone Pancreatitis with Cholecystitis Postoperative diagnosis: Gallstone Pancreatitis with Cholecystitis Primary procedure: Laparoscopic Cholecystectomy with ICG Cholangiography Anesthesia: GETA + Local Estimated blood loss: <5cc Specimen: Gallbladder Findings: Cholecystitis with Cholelithiasis Complications: None Transferred to: Recovery Room Condition: Good
[2024-05-01] MEDS: HYDROMORPHONE HCL 1 MG/ML INJ ONE ×2 (16:05→16:30)
[2024-05-01] MEDS: ONDANSETRON 4 MG/2 ML VIAL ONE (16:05)
[2024-05-01] MEDS: MIDAZOLAM HCL 2 MG/2 ML INJ ONE (16:15)
[2024-05-01] MEDS: HYDRALAZINE HCL 20 MG/ML VIAL ONE (16:55)
[2024-05-01 16:57] VITALS: O2SAT 100
[2024-05-01] MEDS: NA CHLORIDE 0.9% 0 ML ONE (17:07)
[2024-05-01] MEDS: NA CHLORIDE 0.9% 1,000 ML ONE (17:10)
--- NOTE | 2024-05-01 18:40 | P.PN ---
Date of Service: 05/01/24 Subjective Surgery today, tolerated well no new complaints ROS 10 point ROS as noted above, otherwise negative Physical Exam General: AAO x3, afebrile Neck: Supple, 2+ carotid pulse no bruit Respiratory: Clear BBS, Normal air movement, on RA Cardiovascular: RRR, Normal S1 S2, no edema Capillary refill: <2 Seconds Gastrointestinal: Soft, Tenderness, active bowel sounds Musculoskeletal: No clubbing Integumentary: No rashes Neurological: Normal speech, Normal tone Vitals Reviewed Problem list Acute gallstone pancreatitis Tobacco and marijuana abuse Assessment and Plan Acute gallstone pancreatitis Leukocytosis likely 2/2 inflammation -Ultrasound abdomen reports "Cholelithiasis with concern for acute cholecystitis." -Lipase > 5000, trend daily -LFT trend daily -Pain control -Zosyn IV -Dr. Felipe consulted -Aggressive IV fluids -MRCP showing mild prominence of intrahepatic common bile duct but no evidence of ductal irregularity. Tobacco and marijuana abuse -cessation education provided Interval hospital course 04/29/24 Plan -Bilirubin elevated -MRCP showing WNL -likely surgical intervention in the AM -Continue IV antibiotics 04/30/24 -Lipase trending down -Dr. Felipe plans for surgery in the AM -CLD then NPO at midnight -reduced IVF -Continue antibiotics 05/01/24 -Lipase continues to trend down -tolerating CLD, NPO for surgery, will advance post op -pain controlled -likely discharge in the AM DVT ppx lovenox Full code LOS 2-3 days
[2024-05-01] MEDS: HYDROCODONE/APAP 5/325 MG TAB PO PRN (22:44)
--- NOTE | 2024-05-02 02:12 | OP ---
Date of Procedure: 05/01/2024 Surgeon: Av Felipe MD, Preoperative Diagnoses: Gallstone pancreatitis with cholecystitis. Postop Diagnoses: Gallstone pancreatitis with cholecystitis. Procedure: Laparoscopic cholecystectomy with indocyanine green cholangiography. Anesthesia: General endotracheal plus local 1% lidocaine with epinephrine. Estimated Blood Loss: Less than 5 cc. Specimen: Gallbladder. Findings: Cholecystitis with cholelithiasis. Complications: None. The patient was transferred to recovery room in good condition. Procedure In Detail: After informed consent was obtained, the patient was brought to the operating r oom, prepped and draped in the usual sterile fashion after adequate anesthesia was achieved, anesthet ized an area in the supraumbilical position down to subcutaneous tissues. A 5 mm 0-degree optical tr ocar was introduced in the abdomen without complication. Insufflation was obtained to 15 mmHg at thi s time. There was no injury to vital structures. Two additional trocars were placed, one in the epi gastrium and one in the right upper quadrant. Both of these were similarly anesthetized, sharply inc ised. A 5 mm trocar was placed under direct vision without incident or complication. The patient th en had the umbilical trocar upsized to a 12 mm under direct vision without incident or complication. The patient was then placed head up right-side up position. Ratcheted graspers were used to grasp t he patient's gallbladder, placed it towards the patient's right shoulder. Dissection continued down the Samina pouch of the gallbladder, dissecting out 2 structures, identified as both cystic duct an d cystic artery. Both these structures were skeletonized at this point. After these were skeletoniz ed appropriately, the critical view of safety was obtained. I then performed indocyanine green angio graphy at this point, which confirmed the transection point far from the confluence of the cystic com mon duct junction. At this point, I ligated these structure between Endo Christal after placing double titanium clips on the proximal side, singly on distal side of both the cystic duct and cystic artery as described. The gallbladder was then removed off the hepatic fossa and placed in EndoCatch bag, r emoved through the umbilical trocar site, sent off for pathologic examination. There was some fulgura tion required to the hepatic fossa where there was some oozing at the end the procedure. This was co ntrolled with electrocautery. The area was copiously irrigated once again after insufflation was timmy ntained. At this point, the patient was positioned back in neutral position. The clips found to be good anatomic position. There was no additional hemostatic required. At this point, I performed ind ocyanine green cholangiography and there was no additional bleeding and no leakage of bile at the end of the procedure. At this point, the abdomen was inspected one last time, the remaining effluent wa s suctioned out. The 12 mm trocar site was closed using a Timothy-Tamiko suture passer with an 0 Vi cryl interrupted fashion with good approximation tissues. The abdomen was then desufflated under dir ect vision without incident or complication. All remaining trocars removed. All skin incisions were then copiously irrigated, closed with interrupted jonathon and sterile dressing placed over top. The patient tolerated the procedure without incident or complication, transferred to PACU in good condit ion. All counts were correct at the end of the case. KOMAL/DAY Voice ID: [id number] Report ID: [id number]
[2024-05-02 05:40] LABS: Absolute Lymphocytes (CBC) 1.6 K/uL (0.7-4.9); Absolute Monocytes 0.6 K/uL (0.1-1.3); Absolute Neutrophil 9.9 K/uL (1.8-8.0); Basophils % 0.2 % (0-1.3); Hematocrit 34.2 % (36.0-45.0); Hemoglobin 11.6 g/dL (12.0-15.0); Lymphocytes % 13.3 % (15.3-44.8); MCH 29.5 pg (27.0-35.0); MCV 86.9 fL (80-100); MPV 8.9 fL (7.6-11.3); Monocytes % 5.3 % (3.3-12.3); Neutrophils % 81.2 % (41.7-73.7); Platelets 327 thou/uL (152-406); RBC Red Blood Cell Count 3.94 M/uL (3.86-4.86); Red Cell Distribution Width 15.6 % (12.1-15.2)
[2024-05-02 05:47] LABS: ALT/SGPT 79 U/L (13-56); AST/SGOT 29 U/L (15-37); Albumin 2.7 g/dL (3.4-5.0); Albumin/Globulin Ratio 0.8 (1.1-1.8); Alkaline Phosphatase 96 U/L (45-117); Anion Gap 10.7 mEq/L (5.0-15.0); Bicarbonate 23 mEq/L (21-32); Bilirubin Total 0.4 mg/dL (0.2-1.0); Globulin 3.6 g/dL (2.3-3.5); Glomerular Filtration Rate 133 ml/min (=/>90); Glucose Level 106 mg/dL (74-106); Lipase 46 U/L (13-75); Magnesium 1.9 mg/dL (1.6-2.4); Phosphorus 3.3 mg/dL (2.5-4.9); Potassium 3.7 mEq/L (3.5-5.1); Protein, Total 6.3 g/dL (6.4-8.2); Sodium Level 137 mEq/L (136-145)
[2024-05-02 05:59] LABS: BUN Blood Urea Nitrogen < 3 mg/dL (7-18)
[2024-05-02 08:12] VITALS: TEMP 97.6
[2024-05-02] MEDS: POTASSIUM 25 MEQ EFFERV TAB PO ONE (08:20)
[2024-05-02 12:24] VITALS: BP 138/75
--- NOTE | 2024-05-02 12:41 | P.DS ---
Admission Date: 04/27/24 Discharge Date: 05/02/24 Disposition: ROUTINE DISCHARGE Discharge Condition: GOOD Reason for Admission: Acute gallstone pancreatitis Brief History of Present Illness: Diagnosis Acute gallstone pancreatitis Acute Cholecystitis Tobacco and marijuana abuse HPI 04/27/24 Maya Arriaza is a 29 year old female with no significant PMhx who presents to the ED with right shoulder pain, upper abdominal pain, and nause/vomiting since 10:30 PM last night. She reports she has not had anything to eat of drink since last night at 6:30 pm. She denies having these symptoms in the past. Laboratory evaluation significant for WBC 17, Lipase >5000, AST 158, ALT 98. She reports using marijuana and tobacco. CT abd/pelvis reports "1. Mild stranding and edema surrounding the pancreas, can be seen in setting of acute pancreatitis. Correlate with amylase/lipase levels. 2. Distended gallbladder with wall thickening, can be seen in setting of acute cholecystitis. Recommend dedicated ultrasound for further evaluation." Maya will be admitted to hospitalist service for further evaluation and treatment, Dr. Felipe consulted. Hospital Course: Patient was admitted and treated for the following diagnosis Assessment and Plan Acute gallstone pancreatitis Acute cholecystitis Leukocytosis likely 2/2 inflammation -Ultrasound abdomen reports "Cholelithiasis with concern for acute cholecystitis." -Lipase trended down -elevated LFT resolved -Pain controlled -Zosyn IV tolerated -Dr. Felipe performed surgery 05/01/24 -Aggressive IV fluids tolerated and improved -MRCP showing mild prominence of intrahepatic common bile duct but no evidence of ductal irregularity. Tobacco and marijuana abuse -cessation education provided On 05/02/24, Maya was seen on morning rounds and deemed hemodynamically stable. Dr. Felipe evaluated and cleared her for discharge. Augmentin and tramadol prescribed. Physical Exam General: Alert and priented x3, afebrile Neck: Supple, 2+ carotid pulse no bruit Respiratory: Clear BBS, Normal air movement, on RA Cardiovascular: NSR, Normal S1 S2, no edema Capillary refill: <2 Seconds Gastrointestinal: Soft, mild Tenderness, incision approximated, active bowel sounds Musculoskeletal: No clubbing Integumentary: No rashes Neurological: Normal speech, Normal tone Vital Signs/Physical Exam: Temp Pulse Resp BP Pulse Ox 97.6 F 68 16 138/75 99 05/02/24 12:00 05/02/24 12:00 05/02/24 12:00 05/02/24 12:00 05/02/24 12:00 Laboratory Data at Discharge: WBC 12.20 thou/uL (4.3-10.9) H 05/02/24 05:07 Hgb 11.6 g/dL (12.0-15.0) L 05/02/24 05:07 Hct 34.2 % (36.0-45.0) L 05/02/24 05:07 Plt Count 327 thou/uL (152-406) 05/02/24 05:07 Sodium 137 mEq/L (136-145) 05/02/24 05:07 Potassium 3.7 mEq/L (3.5-5.1) 05/02/24 05:07 BUN < 3 mg/dL (7-18) L 05/02/24 05:07 Creatinine 0.44 mg/dL (0.55-1.02) L 05/02/24 05:07 Glucose 106 mg/dL (74-106) 05/02/24 05:07 Phosphorus 3.3 mg/dL (2.5-4.9) 05/02/24 05:07 Magnesium 1.9 mg/dL (1.6-2.4) 05/02/24 05:07 Total Bilirubin 0.4 mg/dL (0.2-1.0) 05/02/24 05:07 AST 29 U/L (15-37) 05/02/24 05:07 ALT 79 U/L (13-56) H 05/02/24 05:07 Alkaline Phosphatase 96 U/L (45-117) 05/02/24 05:07 Triglycerides 127 mg/dL (<150) 04/27/24 03:33 Cholesterol 236 mg/dL (<200) H 04/27/24 03:33 HDL Cholesterol 49 mg/dL (40-60) 04/27/24 03:33 Cholesterol/HDL Ratio 4.82 04/27/24 03:33 Lipase 46 U/L (13-75) 05/02/24 05:07 Home Medications: Amox/Clavulanate [Augmentin 875-125 Tab] 875 mg PO BID 7 Days #14 tab 05/02/24 traMADol HCL [Ultram*] 50 mg PO Q6H PRN 5 Days #15 tab 05/02/24 New Medications: Amox/Clavulanate [Augmentin 875-125 Tab] 875 mg PO BID 7 Days #14 tab traMADol HCL [Ultram*] 50 mg PO Q6H PRN 5 Days #15 tab PRN Reason: Pain Physician Discharge Instructions: 1. Please call and schedule a follow-up appointment with your PCP in 3-5 days - Please follow-up with your PCP for medication refills/adjustments 2. Please call and schedule a follow-up appointment with Dr. Felipe in 2 weeks -Follow up and staple removal 3. Continue soft GI diet diet 4. activity restrictions remain off work for 1 week 5. Return to the ED if symptoms worsen New medications Augmentin 875 mg twice daily x 7 days Tramadol 50 mg every 6 hours as needed for pain x 15 doses Diet: [place] Activity: No lifting more than 10 lbs Followup: Av Felipe MD [ACTIVE - CAN ADMIT] - NONE,NONE [Primary Care Provider] -
== END 2024-05-02 14:49 | disposition home or self-care (01) | DRG 417 ==
LOC: ER 02:53 → ERHOLD 07:15 → 2ND 09:04
PROVIDERS: ADMIT Hospitalist; ATTEND Internal Medicine
PROC: BF52200 Other Imaging of Gallbladder using Fluorescing Agent, Indocyanine Green Dye, Intraoperative (ICD-10-PCS; 2024-05-01)
PROC: 0FT44ZZ Resection of Gallbladder, Percutaneous Endoscopic Approach (ICD-10-PCS; principal; 2024-05-01 15:45)
DX: K80.00 Calculus of gallbladder with acute cholecystitis without obstruction (principal); K85.10 Biliary acute pancreatitis without necrosis or infection; E66.9 Obesity, unspecified; F12.10 Cannabis abuse, uncomplicated; F17.210 Nicotine dependence, cigarettes, uncomplicated; R79.89 Other specified abnormal findings of blood chemistry; Z68.33 Body mass index [BMI] 33.0-33.9, adult
CPT/HCPCS: 36415; 74177; 74181; 76705; 80053; 80061; 81003; 81025; 83690; 83735; 84100; 84132; 84703; 85025; 88304; 96361; 96365; 96375; 99284; J0360; J1100; J1171; J1650; J2003; J2250; J2405; J2543; J2550; J2704; J2710; J3010; J3480; J7030; J7120; Q9967